=== PATIENT | male | born 1965 | race Caucasian/White ===

== ENCOUNTER → 2017-10-22 | Outpatient (CLI) | payer OTHER ==
[2017-10-22 08:13] LABS: CREATININE 1.3 mg/dL (0.7-1.3)
== END ==
LOC: CAT 06:34
PROVIDERS: Surgery
DX: K80.20 Calculus of gallbladder without cholecystitis without obstruction (principal); N28.89 Other specified disorders of kidney and ureter; N40.0 Benign prostatic hyperplasia without lower urinary tract symptoms; K43.9 Ventral hernia without obstruction or gangrene; E13.8 Other specified diabetes mellitus with unspecified complications

== ENCOUNTER → 2018-08-12 | Outpatient (CLI) | payer OTHER ==
[2018-08-12 11:43] LABS: CALCIUM 9.7 mg/dL (8.5-10.1); POTASSIUM 4.3 mmol/L (3.5-5.1)
--- NOTE | 2018-08-12 13:08 | EKG ---
[address] [address] ELECTROCARDIOGRAM REPORT Name: VANESAEL BYRNES [id number] ������������������ Admission: 08/12/18 ������������������ Attend Phys: Elisha Rosa MD Discharge: ������������������ Date of : 61 Report #: [id number] ����������������������������������������������������������������� [id number] THIS REPORT FOR: //name// [facility] Test Date: 2018-08-12 Test Time: 12:09:19 Pat Name: EL ALEXIS Department: Room: Gender: [employer] Man: Felipe CUMMINGS : 1965 Requested By: Elisha Rosa Order Number: [id number] MD: Singh Zhao Measurements Intervals [place] Rate: 84 P: 41 MI: 175 QRS: 23 QRSD: 85 T: 37 QT: 361 QTc: 427 Interpretive Statements Sinus rhythm Baseline Artifact present Nonspecific ST-T wave changes Compared to ECG 07/11/2008 14:27:24 No significant changes Electronically Signed On 08-12-2018 13:08:31 EVENTS AND PROMOTIONS ASSISTANT by Singh Zhao [email or web address] ��������������������������������������������� <ELECTRONICALLY SIGNED> ���������������������������������������� By: Singh Zhao MD ��������������������������������������������� 08/12/18 1308 D: 02/1208 08 Singh Zhao MD /CELSO
== END ==
LOC: LABMALL 10:42
PROVIDERS: Anesthesiology
DX: Z01.818 Encounter for other preprocedural examination (principal); I10 Essential (primary) hypertension; E11.9 Type 2 diabetes mellitus without complications

== ENCOUNTER → 2019-09-21 | Outpatient (CLI) | payer OTHER | LOC: CAT 14:49 | DX: R10.32 Left lower quadrant pain (principal) ==